=== PATIENT | female | born 1965 | race American Indian/Alaskan Native ===

== ENCOUNTER 2024-03-27 16:14 | Emergency (ER) | payer OTHER ==
[2024-03-27 17:20] LABS: APPEARANCE,URINE CLEAR; BILIRUBIN,URINE NEGATIVE (NEGATIVE); COLOR,URINE YELLOW; GLUCOSE,URINE >=1000 mg/dL (NEGATIVE); KETONES,URINE NEGATIVE (NEGATIVE); LEUKOCYTE ESTERASE,URINE NEGATIVE (NEGATIVE); NITRITE,URINE NEGATIVE (NEGATIVE); OCCULT BLOOD,URINE NEGATIVE (NEGATIVE); PROTEIN,URINE NEGATIVE (NEGATIVE); UROBILINOGEN,URINE 0.2 EU/dL (<2.0)
[2024-03-27 17:22] LABS: BASOPHILS ABSOLUTE AUTO 0.04 K/uL (0.00-0.20); BASOPHILS PERCENT AUTO 0.4 % (0.0-1.0); EOSINOPHILS ABSOLUTE AUTO 0.52 K/uL (0.00-0.45); EOSINOPHILS PERCENT AUTO 5.8 % (0.0-6.0); HEMATOCRIT 41.1 % (37.0-47.0); HEMOGLOBIN 13.9 g/dL (12.0-16.0); IMMATURE GRAN ABSOLUTE AUTO 0.02 K/uL (0.00-0.05); IMMATURE GRAN PERCENT AUTO 0.2 % (0.0-0.4); LYMPHOCYTES ABSOLUTE AUTO 2.84 K/uL (1.00-4.80); LYMPHOCYTES PERCENT AUTO 31.6 % (24.0-44.0); MEAN CORPUSCULAR HEMOGLOBIN 31.3 pg (28.0-32.0); MEAN CORPUSCULAR HGB CONC 33.8 g/dL (32.0-36.0); MEAN CORPUSCULAR VOLUME 92.6 fL (83.0-99.0); MONOCYTES ABSOLUTE AUTO 0.63 K/uL (0.00-0.80); NEUTROPHILS ABSOLUTE AUTO 4.93 K/uL (1.80-7.70); PLATELET COUNT,PLT 214 K/uL (150-400); RED BLOOD CELL COUNT 4.44 M/uL (4.10-5.30); WHITE BLOOD CELL COUNT,WBC 8.98 K/uL (3.9-11.3)
[2024-03-27 17:43] LABS: A/G RATIO 1.1 (0.9-1.6); ALBUMIN 4.1 g/dL (3.4-5.0); BILIRUBIN TOTAL 0.4 mg/dL (0.2-1.0); CALCIUM 8.7 mg/dL (8.5-10.1); CARBON DIOXIDE,CO2 27.4 mmol/L (21.0-32.0); CREATININE 1.3 mg/dL (0.6-1.0); POTASSIUM,K 3.9 mmol/L (3.5-5.1); PROTEIN TOTAL,TP 7.7 g/dL (6.4-8.2)
== END 2024-03-27 18:23 | disposition home or self-care (01) ==
LOC: MW.ED 16:14
DX: K14.8 Other diseases of tongue (principal); E11.69 Type 2 diabetes mellitus with other specified complication; I10 Essential (primary) hypertension; E78.5 Hyperlipidemia, unspecified; E78.00 Pure hypercholesterolemia, unspecified; F17.210 Nicotine dependence, cigarettes, uncomplicated; Z75.8 Other problems related to medical facilities and other health care; Z79.82 Long term (current) use of aspirin; Z79.899 Other long term (current) drug therapy
CPT/HCPCS: 36415; 70450; 70450-26; 80053; 81003; 82947; 85025; 93005; 93010; 99283; 99284

== ENCOUNTER 2024-07-24 06:53 | Day surgery (SDC) | payer OTHER ==
[~2024-07-24 06:53] MED LIST: Sodium Chloride 0.9% 10 ML Syringe FLUSH PRN; Sodium Chloride 0.9% 2.5 ML Syringe FLUSH PRN; Sodium Chloride 0.9% 20 ML SDV IV PRN
[2024-07-24] MEDS: Lactated Ringers 1,000 ML IV SCH (07:18)
[2024-07-24] MEDS ORDERED: dexmedeTOMIDine HCl 200 MCG/2 ML SDV ONE (08:15)
[2024-07-24] MEDS ORDERED: Sodium Chloride 0.9% 20 ML ONE (08:15)
[2024-07-24] MEDS ORDERED: propofoL 500 MG/50 ML 50 ML ONE (08:42)
== END 2024-07-24 10:50 | disposition home or self-care (01) ==
LOC: MW.SDS 06:53
PROVIDERS: ATTEND Surgery
DX: Z12.11 Encounter for screening for malignant neoplasm of colon (principal); D12.4 Benign neoplasm of descending colon; K62.1 Rectal polyp; I10 Essential (primary) hypertension; E11.9 Type 2 diabetes mellitus without complications; E66.9 Obesity, unspecified; E78.00 Pure hypercholesterolemia, unspecified; F17.210 Nicotine dependence, cigarettes, uncomplicated; Z79.82 Long term (current) use of aspirin; Z79.899 Other long term (current) drug therapy; Z86.0101 Personal history of adenomatous and serrated colon polyps; Z68.31 Body mass index [BMI] 31.0-31.9, adult
CPT/HCPCS: 45380; 82947; J2704; J7120; 00811; J3490

== ENCOUNTER 2025-03-27 09:38 | Observation (INO) | payer OTHER ==
[2025-03-27 10:01] LABS: BASOPHILS ABSOLUTE AUTO 0.03 K/uL (0.00-0.20); BASOPHILS PERCENT AUTO 0.4 % (0.0-1.0); EOSINOPHILS ABSOLUTE AUTO 0.28 K/uL (0.00-0.45); EOSINOPHILS PERCENT AUTO 3.5 % (0.0-6.0); IMMATURE GRAN ABSOLUTE AUTO 0.01 K/uL (0.00-0.05); IMMATURE GRAN PERCENT AUTO 0.1 % (0.0-0.4); LYMPHOCYTES ABSOLUTE AUTO 2.09 K/uL (1.00-4.80); LYMPHOCYTES PERCENT AUTO 26.5 % (24.0-44.0); MEAN PLATELET VOLUME 9.1 fL (9.4-12.4); MONOCYTES ABSOLUTE AUTO 0.50 K/uL (0.00-0.80); MONOCYTES PERCENT AUTO 6.3 % (0.0-8.0); NEUTROPHILS ABSOLUTE AUTO 4.98 K/uL (1.80-7.70); NEUTROPHILS PERCENT AUTO 63.2 % (41.0-71.0); NRBC ABSOLUTE 0.00 K/uL (0.00-0.02); NRBC PERCENT 0.0 /100WBC (0.0-0.2); PLATELET COUNT,PLT 210 K/uL (150-400); RED BLOOD CELL COUNT 4.26 M/uL (4.52-5.90); WHITE BLOOD CELL COUNT,WBC 7.89 K/uL (3.9-11.3)
[2025-03-27 10:15] LABS: INR 0.98 (0.86-1.11); PTT,PARTIAL THROMBOPLSTIN TIME 25.6 SEC (23.9-30.7)
[2025-03-27 10:27] LABS: A/G RATIO 1.1 (0.9-1.6); ALANINE AMINOTRANSFERASE,ALT 27.0 IU/L (14-63); ASPARTATE AMNIOTRANSFERASE,AST 14.0 IU/L (15-37); BILIRUBIN TOTAL 0.4 mg/dL (0.2-1.0); BLOOD UREA NITROGEN,BUN 32.0 mg/dL (7.0-18.0); CARBON DIOXIDE,CO2 23.8 mmol/L (21.0-32.0); CHLORIDE,CL 109.0 mmol/L (98-107); CREATININE 1.6 mg/dL (0.8-1.3); EST CRCL DRUG DOSING (CG) 47.5 mL/min; ESTIMATED GFR 49.0 mL/min (>60); GLUCOSE RANDOM 222.0 mg/dL (74-106); POTASSIUM,K 4.3 mmol/L (3.5-5.1); PROTEIN TOTAL,TP 7.2 g/dL (6.4-8.2); SODIUM,NA 143.0 mmol/L (136-148)
[2025-03-27] MEDS: Iopamidol 755 Mg/ML 100 ML Bottle IVPUSH ONE (10:49)
[2025-03-27] MEDS ORDERED: Sodium Chloride 0.9% 10 ML Syringe FLUSH PRN (12:52)
[2025-03-27] MEDS ORDERED: Sodium Chloride 0.9% 2.5 ML Syringe FLUSH PRN (12:52)
[2025-03-27] MEDS ORDERED: 50% Dextrose in Water 50 ML Syringe IVPUSH PRN (12:54)
[2025-03-27 13:30] LABS: CHOLESTEROL HDL 39.0 mg/dL (40-60); CHOLESTEROL LDL CALCULATED 104.0 mg/dL (60-180); CHOLESTEROL TOTAL 177.0 mg/dL (50-200); VLDL CHOLESTEROL 34.0 mg/dL (5-55)
[2025-03-27] MEDS: Gadoteridol 279.3 MG/ML 20 ML SDV IVPUSH ONE (14:46)
[2025-03-28 06:00] LABS: BASOPHILS ABSOLUTE AUTO 0.06 K/uL (0.00-0.20); BASOPHILS PERCENT AUTO 0.8 % (0.0-1.0); EOSINOPHILS ABSOLUTE AUTO 0.48 K/uL (0.00-0.45); EOSINOPHILS PERCENT AUTO 6.4 % (0.0-6.0); IMMATURE GRAN ABSOLUTE AUTO 0.01 K/uL (0.00-0.05); IMMATURE GRAN PERCENT AUTO 0.1 % (0.0-0.4); LYMPHOCYTES ABSOLUTE AUTO 2.36 K/uL (1.00-4.80); LYMPHOCYTES PERCENT AUTO 31.3 % (24.0-44.0); MEAN PLATELET VOLUME 9.2 fL (9.4-12.4); MONOCYTES ABSOLUTE AUTO 0.61 K/uL (0.00-0.80); MONOCYTES PERCENT AUTO 8.1 % (0.0-8.0); NEUTROPHILS ABSOLUTE AUTO 4.03 K/uL (1.80-7.70); NEUTROPHILS PERCENT AUTO 53.3 % (41.0-71.0); NRBC ABSOLUTE 0.00 K/uL (0.00-0.02); NRBC PERCENT 0.0 /100WBC (0.0-0.2); PLATELET COUNT,PLT 228 K/uL (150-400); RED BLOOD CELL COUNT 4.60 M/uL (4.52-5.90); WHITE BLOOD CELL COUNT,WBC 7.55 K/uL (3.9-11.3)
[2025-03-28 06:20] LABS: BLOOD UREA NITROGEN,BUN 28.0 mg/dL (7.0-18.0); CARBON DIOXIDE,CO2 26.6 mmol/L (21.0-32.0); CHLORIDE,CL 111.0 mmol/L (98-107); CREATININE 1.2 mg/dL (0.8-1.3); EST CRCL DRUG DOSING (CG) 63.33 mL/min; GLUCOSE RANDOM 158.0 mg/dL (74-106); POTASSIUM,K 5.0 mmol/L (3.5-5.1); SODIUM,NA 144.0 mmol/L (136-148)
[2025-03-28 06:22] LABS: ESTIMATED GFR 69.0 mL/min (>60)
== END 2025-03-28 12:45 | disposition home or self-care (01) ==
LOC: MW.ED 09:38 → MW.MS 13:08
PROVIDERS: ADMIT Internal Medicine; ATTEND Internal Medicine
DX: G45.9 Transient cerebral ischemic attack, unspecified (principal); E11.9 Type 2 diabetes mellitus without complications; I25.10 Atherosclerotic heart disease of native coronary artery without angina pectoris; E78.00 Pure hypercholesterolemia, unspecified; I10 Essential (primary) hypertension; E66.9 Obesity, unspecified; F17.200 Nicotine dependence, unspecified, uncomplicated; Z68.30 Body mass index [BMI] 30.0-30.9, adult; Z79.82 Long term (current) use of aspirin; Z79.899 Other long term (current) drug therapy
CPT/HCPCS: 36415; 70450; 70496; 70498; 70553; 71045; 80048; 80053; 80061; 82947; 83036; 84484; 85025; 85610; 85730; 86850; 86900; 86901; 93005; 93306; 99285; A9270; A9579; G0378; J1815; Q9967; 93010; 99222; 99238